=== PATIENT | female | born 1970 | race American Indian/Alaskan Native ===

== ENCOUNTER 2018-04-11 15:08 | Emergency (ER) | payer MEDICAID ==
[~2018-04-11] VITALS: Ht 167.6 cm; Wt 95.5 kg
[~2018-04-11 15:08] MED LIST: ARIP400S IM; FERR-89 PO
[2018-04-11 17:35] VITALS: BP 138/79
== END 2018-04-11 17:47 | disposition home or self-care (01) ==
LOC: EMS 15:10
DX: M25.561 Pain in right knee (principal); R03.0 Elevated blood-pressure reading, without diagnosis of hypertension; F31.9 Bipolar disorder, unspecified; F20.9 Schizophrenia, unspecified; M19.90 Unspecified osteoarthritis, unspecified site; F17.210 Nicotine dependence, cigarettes, uncomplicated
CPT/HCPCS: 29505

== ENCOUNTER 2019-02-22 03:48 | Emergency (ER) | payer MEDICAID ==
[~2019-02-22] VITALS: Ht 167.6 cm; Wt 94.1 kg
[2019-02-22 06:15] VITALS: BP 119/81
[2019-02-22] MEDS ORDERED: BACITRACIN 0.9 GM PACKET OINTMENT TP ONE (06:30)
== END 2019-02-22 06:53 | disposition home or self-care (01) ==
LOC: EMS 03:48
DX: L72.3 Sebaceous cyst (principal); F20.9 Schizophrenia, unspecified; F17.210 Nicotine dependence, cigarettes, uncomplicated; F12.90 Cannabis use, unspecified, uncomplicated; Z79.899 Other long term (current) drug therapy
CPT/HCPCS: 10060

== ENCOUNTER 2021-09-14 11:12 | Emergency (ER) | payer MEDICAID ==
[~2021-09-14] VITALS: Ht 167.6 cm; Wt 105.0 kg
[~2021-09-14 11:12] MED LIST changes: -FERR-89 PO
[2021-09-14 11:18] VITALS: BP 126/76
[2021-09-14] MEDS ORDERED: KETOROLAC TROMETHAMINE 60 MG/2 ML VIAL IM ONE (11:45)
== END 2021-09-14 14:31 | disposition home or self-care (01) ==
LOC: EMS 11:19
DX: S76.101A Unspecified injury of right quadriceps muscle, fascia and tendon, initial encounter (principal); M25.461 Effusion, right knee; M25.561 Pain in right knee; M19.90 Unspecified osteoarthritis, unspecified site; F31.9 Bipolar disorder, unspecified; F20.9 Schizophrenia, unspecified; F17.200 Nicotine dependence, unspecified, uncomplicated; F12.90 Cannabis use, unspecified, uncomplicated; X58.XXXA Exposure to other specified factors, initial encounter; Y93.89 Activity, other specified; Y92.89 Other specified places as the place of occurrence of the external cause; Y99.8 Other external cause status
CPT/HCPCS: 73562; 96372; 99283; J1885

== ENCOUNTER 2025-03-21 00:45 | Inpatient (IN) | payer MEDICAID ==
[~2025-03-21] VITALS: Ht 170.2 cm; Wt 80.1 kg
[~2025-03-21 00:45] MED LIST changes: -ARIP400S IM; +ARIP400S6 IM
[2025-03-21 02:02] LABS: COVID AG,FIA SOURCE NASAL SWAB
[2025-03-21 02:03] LABS: PLATELET COUNT (AUTO) 311 K/uL (150-450); RED BLOOD CELL COUNT(AUTO) 4.56 MIL/uL (4.00-5.20); RED CELL DISTRIBUTION WIDTH 17.9 % (11.5-14.5); WHITE BLOOD COUNT (AUTO) 9.0 K/uL (4.5-11.0)
[2025-03-21 02:09] LABS: SARS-COV2 (COVID) ANTIGEN,FIA Negative (Negative)
[2025-03-21 02:10] LABS: CALCIUM, TOTAL 8.0 mg/dL (8.8-10.5); CREATININE 0.62 mg/dL (0.60-1.30); GLOMERULAR FILTR. RATE CALC > 60 mL/min (>60); GLUCOSE,RANDOM 97 mg/dL (70-110); SODIUM SERUM 134 mmol/L (136-145); UREA NITROGEN, BLOOD 17 mg/dL (7-18)
[2025-03-21] MEDS: KETOROLAC TROMETHAMINE 30 MG/ML VIAL IM ONE (02:24)
[2025-03-21] MEDS ORDERED: ZOLPIDEM TARTRATE 10 MG TABLET PO PRN (04:15)
[2025-03-21 06:00] VITALS: O2SAT 96
[2025-03-21 07:22] LABS: APPEARANCE,URINE CLEAR (CLEAR); GLUCOSE, URINE (UA) NEGATIVE (NEGATIVE); LEUKOCYTE ESTERASE ,URINE NEGATIVE (NEGATIVE); NITRATE,URINE NEGATIVE (NEGATIVE); OCCULT BLOOD,URINE NEGATIVE (NEGATIVE); PH,URINE DRUG SCREEN 6.0 (5.0-8.0); SPECIFIC GRAVITIY, URINE 1.011 (1.003-1.030)
[2025-03-21 07:28] LABS: ALCOHOL, URINE DRUG SCREEN NEGATIVE (NEGATIVE); AMPHET/METH SCREEN,URINE NEGATIVE (NEGATIVE); BARBITURATE SCREEN, URINE NEGATIVE (NEGATIVE); CANNABINOID SCREEN,URINE POSITIVE (NEGATIVE); COCAINE SCREEN,URINE NEGATIVE (NEGATIVE); METHADONE SCREEN, URINE NEGATIVE (NEGATIVE)
[2025-03-21] MEDS ORDERED: OLAN7.5T22 PO (10:33)
[2025-03-21] MEDS ORDERED: ATOR40TA28 PO (10:33)
[2025-03-21] MEDS ORDERED: MIRT-89 PO (10:33)
[2025-03-21] MEDS ORDERED: METO25XL PO (10:33)
[2025-03-21] MEDS ORDERED: OLAN10TA74 PO (10:33)
[2025-03-21] MEDS ORDERED: ASPI-1444 PO (10:33)
[2025-03-21] MEDS ORDERED: ALBUTEROL SULFATE HFA 90 MCG/PUFF 8 GM INHALER IH PRN (11:30)
[2025-03-21] MEDS ORDERED: PETROLATUM,WHITE 28 GM JELLY TP PRN (11:30)
[2025-03-21] MEDS ORDERED: MAG HYDROX/ALUMINUM HYD/SIMETH ES 30 ML SUSPENSION UDCUP PO PRN (11:30)
[2025-03-21] MEDS ORDERED: ONDANSETRON 4 MG TABLET PO PRN (11:30)
[2025-03-21] MEDS ORDERED: DOCUSATE SODIUM 100 MG CAPSULE PO PRN (11:30)
[2025-03-21] MEDS ORDERED: IBUPROFEN 400 MG TABLET PO PRN (11:30)
[2025-03-21] MEDS ORDERED: MAGNESIUM HYDROXIDE SUSPENSION 30 ML UDCUP PO PRN (11:30)
[2025-03-21] MEDS ORDERED: LOPERAMIDE HCL 2 MG CAPSULE PO PRN (11:30)
[2025-03-21] MEDS ORDERED: NICOTINE 14 MG/24 HOUR PATCH TD PRN (11:30)
[2025-03-21] MEDS ORDERED: GuaiFENesin/D-METHORPHAN [SUGAR-FREE] 200-20MG/10 ML SYRUP UDCUP PO PRN (11:30)
[2025-03-21 11:36] VITALS: BP 117/70; PULSE 85; RESP 16; TEMP 98.4; O2SAT 99
[2025-03-21] MEDS: METHOTREXATE SODIUM 2.5 MG TABLET PO SCH (12:22)
[2025-03-21 15:40] VITALS: BP 143/91; PULSE 86; RESP 20; TEMP 98; O2SAT 98
[2025-03-21] MEDS: OLANZapine 7.5 MG TABLET PO SCH (16:20)
[2025-03-21 20:16] VITALS: BP 129/87; PULSE 100; RESP 18; TEMP 97.1; O2SAT 99
[2025-03-21] MEDS: ATORVASTATIN CALCIUM 40 MG TABLET PO SCH (20:21)
[2025-03-21] MEDS: MIRTAZAPINE 15 MG TABLET PO SCH (20:21)
[2025-03-22] VITALS (7 sets, daily range): BP systolic 105–141; BP diastolic 70–90; PULSE 75–98; RESP 16–20; TEMP 97.2–98.1; O2SAT 96–100
[2025-03-22] MEDS: ACETAMINOPHEN 325 MG TABLET PO PRN (08:50)
[2025-03-22] MEDS: METOPROLOL SUCCINATE 25 MG ER TABLET PO SCH (08:51)
[2025-03-22] MEDS: ASPIRIN 81 MG CHEWABLE TABLET PO SCH (08:51)
[2025-03-22 10:29] LABS: PLATELET COUNT (AUTO) 324 K/uL (150-450); RED BLOOD CELL COUNT(AUTO) 5.40 MIL/uL (4.00-5.20); RED CELL DISTRIBUTION WIDTH 17.8 % (11.5-14.5); WHITE BLOOD COUNT (AUTO) 7.5 K/uL (4.5-11.0)
[2025-03-22 10:56] LABS: ASPARTATE AMINOTRANSFERASE 27 U/L (15-37); CALCIUM, TOTAL 9.3 mg/dL (8.8-10.5); CHOL/HDL RATIO 1.6 (3.9-5.7); CREATININE 0.77 mg/dL (0.60-1.30); GLOMERULAR FILTR. RATE CALC > 60 mL/min (>60); GLUCOSE,RANDOM 129 mg/dL (70-110); LDL CHOL (CALC.) 45 mg/dL (0-130); SODIUM SERUM 133 mmol/L (136-145); TOTAL PROTEIN, SERUM 8.5 g/dL (6.4-8.2); UREA NITROGEN, BLOOD 14 mg/dL (7-18)
[2025-03-23] MEDS: FOLIC ACID 1 MG TABLET PO SCH (08:48)
[2025-03-23 11:39] VITALS: BP 110/86; PULSE 88; RESP 18; TEMP 97.8; O2SAT 100
[2025-03-23 13:16] VITALS: BP 124/88; PULSE 89; RESP 19; TEMP 97.5; O2SAT 99
[2025-03-23] MEDS ORDERED: METH2.5T6 PO (17:21)
[2025-03-23] MEDS ORDERED: METO25XL PO (17:21)
[2025-03-23] MEDS ORDERED: ASPI-1450 PO (17:21)
[2025-03-23] MEDS ORDERED: OLAN7.5T22 PO (17:21)
[2025-03-23] MEDS ORDERED: OLAN10TA74 PO (17:21)
[2025-03-23] MEDS ORDERED: ATOR40TA71 PO (17:21)
== END 2025-03-23 15:51 | disposition home or self-care (01) | DRG 761 ==
LOC: EMS 00:45 → 3EC 10:15
PROVIDERS: ADMIT Psychiatry & Neurology Psychiatry; ATTEND Psychiatry & Neurology Psychiatry
PROC: GZHZZZZ Group Psychotherapy (ICD-10-PCS; principal; 2025-03-21)
DX: F25.0 Schizoaffective disorder, bipolar type (principal); E78.5 Hyperlipidemia, unspecified; F10.10 Alcohol abuse, uncomplicated; F12.10 Cannabis abuse, uncomplicated; I10 Essential (primary) hypertension; M06.9 Rheumatoid arthritis, unspecified; G47.00 Insomnia, unspecified; Z20.822 Contact with and (suspected) exposure to COVID-19; F17.200 Nicotine dependence, unspecified, uncomplicated; Z79.899 Other long term (current) drug therapy; Z87.59 Personal history of other complications of pregnancy, childbirth and the puerperium; Z88.8 Allergy status to other drugs, medicaments and biological substances
CPT/HCPCS: 80048; 80053; 80061; 80307; 81003; 83036; 84436; 84443; 85025; 96372; 99285; G0480; J1885; J8610